=== PATIENT | male | born 1945 | race Caucasian/White ===

== ENCOUNTER 2021-11-11 10:22 | Day surgery (SDC) | payer MEDICARE, BC ==
[2021-11-06 14:16] LABS: CLARITY,URINE CLEAR (Clear); COLOR,URINE YELLOW (Yellow); GLUCOSE, URINE NEGATIVE (Neg); KETONES,URINE NEGATIVE (Neg); LEUKOCYTE ESTERASE ,URINE NEGATIVE (Neg); NITRITES, URINE NEGATIVE (Neg); OCCULT BLOOD,URINE NEGATIVE (Neg); PROTEIN,URINE NEGATIVE (Neg); UROBILINOGEN,URINE 0.2 E.U/dL (0.2-1.0)
[2021-11-06 14:17] LABS: BASOPHILS # (AUTO) 0.1 X10'3 (0-0.2); BASOPHILS % (AUTO) 1.1 % (0-1); EOSINOPHILS # (AUTO) 0.2 X10'3 (0-0.9); LYMPHOCYTES # (AUTO) 1.8 X10'3 (1.1-4.8); LYMPHOCYTES % (AUTO) 23.1 % (21-51); MEAN CORPUSCULAR HEMOGLOBIN 34.8 PG (27.0-31.0); MEAN CORPUSCULAR HGB CONC 35.8 g/dL (33.0-36.5); MEAN CORPUSCULAR VOLUME 97.2 FL (78-98); MEAN PLATELET VOLUME 7.2 FL (7.4-10.4); MONOCYTES # (AUTO) 0.7 X10'3 (0-0.9); NEUTROPHILS % (AUTO) 63.8 % (42-75); PRE OP HEMATOCRIT 37.1 % (42.0-52.0); PRE OP HEMOGLOBIN 13.3 g/dL (14.0-17.9); PRE OP PLATELET COUNT 204 X10'3 (140-440); RED BLOOD COUNT 3.82 X10'6 (4.70-6.10); RED CELL DISTRIBUTION WIDTH 14.7 % (11.5-14.5)
[2021-11-06 14:21] LABS: UA COLLECTION TYPE CLN CATCH MIDSTREAM
[2021-11-06 14:25] LABS: PRE OP PROTIME 10.8 SECONDS (9.0-12.0)
[2021-11-06 14:30] LABS: ALBUMIN 3.6 G/DL (3.4-5.0); ALKALINE PHOSPHATASE 81 IU/L (46-116); BLOOD UREA NITROGEN 11 MG/DL (7-18); BUN/CREATININE RATIO 12.1 (5.4-32.0); CALCIUM 9.1 MG/DL (8.5-10.1); CHLORIDE 104 MMOL/L (99-107); CREATININE 0.91 MG/DL (0.60-1.10); PRE OP ALT 20 U/L (30-65); PRE OP ANION GAP 11 (8-16); PRE OP AST 18 U/L (10-37); PRE OP BILIRUB, TOTAL 0.5 MG/DL (0.0-1.0); PRE OP GLUCOSE 99 MG/DL (70-104); PRE OP SODIUM 139 MMOL/L (135-145); TOTAL CARBON DIOXIDE 24.1 MMOL/L (24-32); TOTAL PROTEIN 7.1 G/DL (6.4-8.2); eGFR 81 ML/MIN
[~2021-11-11] VITALS: Ht 177.8 cm; Wt 76.7 kg
[2021-11-11] VITALS (17 sets, daily range): BP systolic 118–154; BP diastolic 61–101
[~2021-11-11 10:22] MED LIST: CARV-50 PO; DOCUMENT DATE & TIME OF BETA-BLOCKER PO ONE; LISI10TA27 PO; RIVA10TA PO; ceFAZolin inj. 2,000 MG in dextrose 5%-water 100 ML IV ONE; famotidine 20mg tablet PO ONE; ringers solution, lacted 1,000 ML IV SCH
[2021-11-11] MEDS ORDERED: meperidine/PF 25mg/ml syringe IV PRN ×2 (11:35)
[2021-11-11] MEDS ORDERED: ondansetron/PF 4mg/2ml inj IV PRN (11:35)
[2021-11-11] MEDS ORDERED: fentaNYL/PF 50MCG/1 ML 2ML syringe IV PRN ×2 (11:35)
[2021-11-11] MEDS ORDERED: hydrALAZINE 20mg/ml inj. IV PRN (11:35)
[2021-11-11] MEDS ORDERED: ringers solution, lacted 1,000 ML IV SCH (11:35)
[2021-11-11] MEDS ORDERED: labetalol 20mg/4ml (5mg/ml) syringe IV PRN (11:35)
[2021-11-11] MEDS ORDERED: bacitracin 15gm ointment TP ONE (11:55)
[2021-11-11] MEDS ORDERED: neostigmine methylsulfate 1 MG/ML 10ml vial ONE (12:18)
[2021-11-11] MEDS ORDERED: sevoflurane 250ml liquid IH ONE (12:18)
[2021-11-11] MEDS ORDERED: glycopyrrolate 0.2mg/ml inj ONE (12:18)
[2021-11-11] MEDS ORDERED: fentaNYL/PF 50MCG/1 ML 2ML syringe ONE (12:23)
[2021-11-11] MEDS ORDERED: midazolam 1 mg/ML 2ml injection ONE (12:24)
[2021-11-11] MEDS ORDERED: rocuronium 10mg/ml inj IV ONE (12:24)
[2021-11-11] MEDS ORDERED: BUPIVAcaine/PF 7.5mg/ml (0.75%) 10ml vial ONE (12:27)
[2021-11-11] MEDS ORDERED: LIDOcaine 2% (20mg/ml) 5ml vial ONE (12:35)
[2021-11-11] MEDS ORDERED: propofol inj 20 ML IV ONE (12:35)
[2021-11-11] MEDS ORDERED: dexamethasone sod phosphate 4mg/ml inj. ONE (12:36)
[2021-11-11] MEDS ORDERED: ondansetron/PF 4mg/2ml inj ONE (12:37)
--- NOTE | 2021-11-11 13:02 | NUR ---
Received from OR via [facility], 20G TO LEFT FA, DSG TO RIGHT SIDE CDI , accompanied by Anesthesiologist DR DUGAN and report given by Anesthesiolgist. Addendum: 11/11/21 at 1359 by Lala Andrews RN Amended: Links added.
[2021-11-11] MEDS ORDERED: HYDROcodone/acetaminophen 10/325mg tab PO ONE (14:20)
--- NOTE | 2021-11-11 15:32 | NUR ---
PT DC TO HOME WITH FRIEND. PT VERBAL UNDERSTANDING OF DC INSTRUCTIONS, 20G IV REMOVED CATH INTACT, DSG APPLIED BLEEDING CONTROLED. DSG TO RIGHT LOWER QUAD CDI. Addendum: 11/11/21 at 1653 by Lala Andrews RN Amended: Links added.
== END 2021-11-11 15:32 | disposition home or self-care (01) ==
LOC: PRE-OP 10:22
PROVIDERS: ATTEND Surgery
DX: K43.6 Other and unspecified ventral hernia with obstruction, without gangrene (principal); J44.9 Chronic obstructive pulmonary disease, unspecified; F32.A Depression, unspecified; I11.0 Hypertensive heart disease with heart failure; I50.9 Heart failure, unspecified; F12.90 Cannabis use, unspecified, uncomplicated; Z87.01 Personal history of pneumonia (recurrent); Z20.822 Contact with and (suspected) exposure to COVID-19; Z79.01 Long term (current) use of anticoagulants; Z79.899 Other long term (current) drug therapy; Z85.038 Personal history of other malignant neoplasm of large intestine; Z98.890 Other specified postprocedural states; Z87.891 Personal history of nicotine dependence; Z86.16 Personal history of COVID-19; Z88.8 Allergy status to other drugs, medicaments and biological substances; Z86.14 Personal history of Methicillin resistant Staphylococcus aureus infection; Z86.19 Personal history of other infectious and parasitic diseases; Z87.442 Personal history of urinary calculi
CPT/HCPCS: 36415; 49561; 80053; 81003; 82948; 85025; 85610; 85730; 93005; C9803; J0690; J1100; J2175; J2250; J2405; J2704; J2710; J3010; J3490; J7030; J7060; J7120; U0003; U0005; Z7506; Z7512; A4618; A7000